=== PATIENT | female | born 1935 | race Caucasian/White ===

== ENCOUNTER → 2019-04-05 | Outpatient (CLI) | payer MEDICARE, OTHER ==
[2019-04-05 14:38] LABS: TOTAL T3 0.736 ng/mL (0.970-1.69)
== END ==
LOC: OD 12:02
PROVIDERS: ATTEND Family Medicine
DX: Z85.850 Personal history of malignant neoplasm of thyroid (principal)
CPT/HCPCS: 36415; 84436; 84443; 84480

== ENCOUNTER → 2019-07-26 | Outpatient (CLI) | payer MEDICARE, OTHER ==
[2019-07-26 13:20] LABS: FREE T4 (FREE THYROXINE) 1.01 ng/dL (0.78-2.19)
== END ==
LOC: OD 12:01
PROVIDERS: ATTEND Student in an Organized Health Care Education/Training Program
DX: E03.9 Hypothyroidism, unspecified (principal)
CPT/HCPCS: 36415; 84439; 84443; 86800

== ENCOUNTER → 2019-08-27 | Outpatient (CLI) | payer MEDICARE, OTHER | LOC: OD 12:25 | PROVIDERS: ATTEND Otolaryngology | DX: J30.9 Allergic rhinitis, unspecified (principal) | CPT/HCPCS: 36415; 82785; 86003 ==

== ENCOUNTER → 2019-10-16 | Outpatient (CLI) | payer MEDICARE, OTHER ==
[2019-10-16 13:10] LABS: FREE T4 (FREE THYROXINE) 1.62 ng/dL (0.78-2.19)
[2019-10-16 13:24] LABS: THYROID STIMULATING HORMONE 0.51 uIU/mL (0.47-4.68)
== END ==
LOC: OD 11:45
PROVIDERS: ATTEND Student in an Organized Health Care Education/Training Program
DX: E03.9 Hypothyroidism, unspecified (principal)
CPT/HCPCS: 36415; 84439; 84443; 86800